=== PATIENT | female | born 2000 ===

== ENCOUNTER → 2021-08-17 08:19 | Outpatient (CLI) | payer OTHER, MEDICAID, SELFPAY ==
[2021-08-17 21:22] LABS: COVID19 - ORCAS (NP or Nasal) Negative (Negative)
== END ==
PROVIDERS: Visit Provider Family Medicine
DX: Z20.822 Contact with and (suspected) exposure to COVID-19 (principal)
CPT/HCPCS: U0003

== ENCOUNTER → 2025-04-29 11:26 | Outpatient (CLI) | payer OTHER, SELFPAY ==
[2025-04-30 15:14] LABS: HIV 1 & 2 Ab/Ag 4th Gen Combo NEGATIVE (NEGATIVE)
[2025-05-02 16:36] LABS: HSV 1 DNA Negative (Negative); HSV 2 DNA Negative (Negative)
[2025-05-02 17:38] LABS: Atopobium vaginae High - 2 Score (.); Bact Vaginosis-Assoc. bacteria High - 2 Score (.); Candida albicans, NAA Negative (Negative); Candida glabrata Negative (Negative); Chlamydia trachomatis Negative (Negative); Megasphaera 1 High - 2 Score (.); Neisseria gonorrhoeae Negative (Negative); Trichomoas vaginalis by NAA Negative (Negative)
== END ==
PROVIDERS: PCP Physician Assistant Medical; Visit Provider Physician Assistant
DX: Z11.3 Encounter for screening for infections with a predominantly sexual mode of transmission (principal); N89.8 Other specified noninflammatory disorders of vagina; R30.0 Dysuria
CPT/HCPCS: 86592; 87389; 87480; 87491; 87510; 87529; 87591; 87798; 87801